=== PATIENT | male | born 1960 | race Caucasian/White ===

== ENCOUNTER 2021-04-26 23:44 | Inpatient (IN) ==
--- NOTE | 2021-04-26 23:51 | DR.SOBA ---
HPI Time Seen Time Seen by Provider: 04/26/21 23:50 HPI Comment HPI Comment: PATIENT COMPLAINS OF CHRONIC COUGH ASSOCIATED WITH DYSPNEA OVER PAST 10 DAYS. DENIES COUGH, FEVER, CHEST PAIN. CALLED EMS TODAY FOR DIFFICULTY BREATHING. Complaints Chief Complaint Doctors Comments: SHORTNESS OF BREATH COVID-19 Coronavirus symptoms experienced: Fever Reviewed Nurses Notes Reviewed: Yes Source History Provided: Patient and EMS Mode of Arrival Mode of Arrival: EMS Timing Onset of Chief Complaint: 04/27/21 Duration Duration: Weeks PMH PMH Past Surgical History: Yes ROS Review of Systems Constitutional: See HPI, Chills and Weakness Eyes: No Symptoms Reported ENTM: No Symptoms Reported Respiratoy: Dry Cough and Short of Breath Cardiovascular: No Symptoms Reported Gastrointestinal/Abdominal: No Symptoms Reported Genitourinary: No Symptoms Reported Neurological: No Symptoms Reported Musculoskeletal: No Symptoms Reported Integumentary: No Symptoms Reported Hematologic/Lymphatic: No Symptoms Reported Endocrine: No Symptoms Reported Psychiatric: No Symptoms Reported All Other Systems: Reviewed and Negative PE Vital Signs Vitals: Temperature 100.4 F Pulse Rate 96 Respiratory Rate 18 Blood Pressure 141/74 O2 Sat by Pulse Oximetry 93 General General Appearance: Alert and In Distress (MINIMAL TACHYPNEA) Head Head Exam: Normal Inspection Eyes Eye exam: Normal Appearance, PERRL and EOMI ENT ENT Exam: Normal Exam Neck Neck Exam: Normal Inspection and Full ROM Chest Chest Inspection: Normal Inspection and Symmetric Chest Wall Rise Respiratory Respiratory Exam: Bilateral: Decreased Breath Sounds, Left: Decreased Breath Sounds and Lower: Decreased Breath Sounds Cardiovascular Cardiovascular Exam: Regular Rate and Tachycardia Abdominal Exam Abdominal Exam: Normal Inspection, Normal Bowel Sounds and Soft Extremities Extremities Exam: Normal Inspection and Full ROM Back Back Exam: Normal Inspection and Full ROM Neurologic Neurological Exam: Alert and Oriented X3 Psychiatric Psychiatric Exam: Normal Affect and Normal Mood Skin Skin Exam: Warm and Dry MDM Differential Diagnosis Differential Diagnosis: CHF, COPD and Pneumonia Differential Diagnosis Comment:: COVID PNEUMONIA COURSE Treatment Treatment: PULSE OX 77% ON ROOM AIR, HIGH FLOW OXYGEN PULSE OXL 93%, IV NS 1 LITER BOLUS, LEVAQUIN 750MG IVPB, DECADRON 6MG IV, DUO NEB 12ML AEROSOL 30 MIN, LOVENOX 60MG SUBQ Reevaluation 1st: Improved Consultation Call Returned: 02:00 Consultation Comments: DISCUSSED WITH DR HAY FOR ADMIT INPATIENT ROR Labs Reviewed Laboratory Results Reviewed?: Yes Result Diagrams: 04/27/21 00:19 04/27/21 00:19 Laboratory: WBC 11.3 X10^3/uL (3.6-10.0) H 04/27/21 00:19 RBC 4.79 X10^6/uL (4.7-6.0) 04/27/21 00:19 Hgb 14.1 g/dL (13.5-18.0) 04/27/21 00:19 Hct 41.2 % (42.0-54.0) L 04/27/21 00:19 MCV 86.0 fL (80.0-100.0) 04/27/21 00:19 MCH 29.5 pg (27.0-34.0) 04/27/21 00:19 MCHC 34.3 g/dL (33.0-35.0) 04/27/21 00:19 RDW 14.0 % (11.6-16.5) 04/27/21 00:19 Plt Count 138 X10^3/uL (150.0-450.0) L 04/27/21 00:19 MPV 8.8 fL (7.4-11.0) 04/27/21 00:19 Neut % (Auto) 88.1 % (42.0-75.0) H 04/27/21 00:19 Lymph % (Auto) 7.0 % (21.0-51.0) L 04/27/21 00:19 [place] % (Auto) 3.2 % (0.0-13.0) 04/27/21 00:19 Eos % (Auto) 0.0 % (0.9-2.9) L 04/27/21 00:19 Baso % (Auto) 1.7 % (0.2-1.0) H 04/27/21 00:19 Neut # (Auto) 10.0 x10^3/uL (2.2-4.8) H 04/27/21 00:19 Lymph # (Auto) 0.8 X10^3/uL (1.3-2.9) L 04/27/21 00:19 [place] # (Auto) 0.4 x10^3/uL (0.3-0.8) 04/27/21 00:19 Eos # (Auto) 0.0 x10^3/uL (0.0-0.2) 04/27/21 00:19 Baso # (Auto) 0.2 X10^3/uL (0.0-0.1) H 04/27/21 00:19 Absolute Nucleated RBC 0.1 /100WBC 04/27/21 00:19 D-Dimer 1.05 ug/ml (0.0-0.57) H* 04/27/21 00:19 Sample Site Lr 04/27/21 00:00 ABG pH 7.500 (7.35-7.45) H 04/27/21 00:00 ABG pCO2 35.0 mmHg (35.0-45.0) 04/27/21 00:00 ABG pO2 48.0 mmHg (80.0-100.0) L* 04/27/21 00:00 ABG HCO3 27.3 mmol/L (22-26) H 04/27/21 00:00 ABG O2 Saturation 87.0 % (90-100) L 04/27/21 00:00 ABG Base Excess 4.2 mmol/L (-2.0-2.0) H 04/27/21 00:00 [place] Test Pos 04/27/21 00:00 A-a Gradient 193.0 mmHg 04/27/21 00:00 FiO2 40 04/27/21 00:00 Blood Gas Comments [facility] well 04/27/21 00:00 Sodium 137 mmol/L (136-145) 04/27/21 00:19 Corrected Sodium 139 mmol/L (136-145) 04/27/21 00:19 Potassium 3.0 mmol/L (3.5-5.1) L* 04/27/21 00:19 Chloride 99 mmol/L (98-107) 04/27/21 00:19 Carbon Dioxide 25.2 mmol/L (21-32) 04/27/21 00:19 BUN 16 mg/dL (7-18) 04/27/21 00:19 Creatinine 1.28 mg/dL (0.70-1.30) 04/27/21 00:19 Est GFR (MDRD) Af Amer > 60 (>60) 04/27/21 00:19 Est GFR (MDRD) Non-Af > 60 (>60) 04/27/21 00:19 Glucose 192 mg/dL (65-99) H 04/27/21 00:19 Lactic Acid 2.9 mmol/L (0.4-2.0) H 04/27/21 00:19 Calcium 8.5 mg/dL (8.5-10.1) 04/27/21 00:19 Ferritin 4163 ng/mL (26-388) H 04/27/21 00:19 Troponin I 0.11 ng/mL (0-1.5) 04/27/21 00:19 C-Reactive Protein 162.70 mg/L (0-3.0) H 04/27/21 00:19 B-Natriuretic Peptide 27.9 pg/mL (0-79) 04/27/21 00:19 SARS CoV-2 RNA Rapid HARVEY Positive (NEGATIVE) A 04/27/21 00:18 XRAY X-ray Results: PORTABLE CHEST XRAY - ,NO FOCAL CONSOLIDATION EKG Rate: 114 Rhythm: ST Block: RBBB Hypertrophy: LVH ST: Nonsp Opioid Opioid Risk Tool Total: 0 Total Score Risk Category: Low Risk Copyright: Pipe LIZAMA predicting aberrant behaviors Diagnosis Discharge Problem: Acute dyspnea, Acute bronchitis due to 2019 novel coronavirus
[2021-04-27] MEDS ORDERED: NS 1000 ML 1,000 ML IV STA (00:04)
[2021-04-27] MEDS ORDERED: LEVAQUIN PREMIX IV 750 MG 750 MG/150 ML BAG IV ONE (00:10)
[2021-04-27] MEDS ORDERED: NS 1000 ML 1,000 ML ONE ×2 (00:10→02:18)
[2021-04-27 00:13] LABS: ABG BASE EXCESS 4.2 mmol/L (-2.0-2.0); ABG HCO3 27.3 mmol/L (22-26)
[2021-04-27 00:14] LABS: ABG ALLEN TEST POS
[2021-04-27] MEDS ORDERED: DUONEB 0.5 MG/3 MG (3 mL) NEB ONE ×2 (00:17)
[2021-04-27 00:31] LABS: BASOPHILS # (AUTO) 0.2 X10^3/uL (0.0-0.1); BASOPHILS % (AUTO) 1.7 % (0.2-1.0); HEMATOCRIT 41.2 % (42.0-54.0); HEMOGLOBIN 14.1 g/dL (13.5-18.0); LYMPHOCYTES # (AUTO) 0.8 X10^3/uL (1.3-2.9); MEAN CORPUSCULAR HEMOGLOBIN 29.5 pg (27.0-34.0); MEAN CORPUSCULAR HGB CONC 34.3 g/dL (33.0-35.0); MEAN PLATELET VOLUME 8.8 fL (7.4-11.0); MONOCYTES # (AUTO) 0.4 x10^3/uL (0.3-0.8); MONOCYTES % (AUTO) 3.2 % (0.0-13.0); NEUTROPHILS % (AUTO) 88.1 % (42.0-75.0); PLATELET COUNT 138 X10^3/uL (150.0-450.0); RED BLOOD COUNT 4.79 X10^6/uL (4.7-6.0); WHITE BLOOD COUNT 11.3 X10^3/uL (3.6-10.0)
[2021-04-27 00:41] LABS: BLOOD UREA NITROGEN 16 mg/dL (7-18); CALCIUM 8.5 mg/dL (8.5-10.1); CARBON DIOXIDE 25.2 mmol/L (21-32); CHLORIDE 99 mmol/L (98-107); COR NA(FOR HYPERGLY) 139 mmol/L (136-145); CREATININE 1.28 mg/dL (0.70-1.30); SODIUM 137 mmol/L (136-145); eGFR NON BLACK RACES > 60 (>60)
[2021-04-27 00:49] LABS: LACTIC ACID 2.9 mmol/L (0.4-2.0)
[2021-04-27 01:02] LABS: TROPONIN I 0.11 ng/mL (0-1.5)
[2021-04-27] MEDS ORDERED: NS 1000 ML 1,000 ML IV ONE (01:19)
[2021-04-27] MEDS ORDERED: DECADRON INJ IVP STA (01:20)
[2021-04-27] MEDS ORDERED: DECADRON INJ ONE (01:25)
--- NOTE | 2021-04-27 01:25 | RAD ---
STUDY: FRONTAL VIEW CHESTCOMPARISON: NoneHISTORY: DYSPNEAFINDINGS:Subsegmental atelectasis is noted.No focal consolidation is seen.The heart size is within normal limits.The mediastinum is unremarkable.There is no evidence of pleural effusion or gross pneumothorax.The trachea is midline.IMPRESSION:1. No focal consolidation is seen.2. The heart size is normal.Electronically signed by: El Yuen (Apr 27, 2021 01:22:44)
[2021-04-27] MEDS ORDERED: LOVENOX INJ 60 MG SYR SC ONE ×2 (01:57→02:18)
[2021-04-27] MEDS ORDERED: K-DUR TAB 20 MEQ PO ONE ×2 (02:18→21:59)
[2021-04-27] MEDS: K-DUR TAB 20 MEQ PO STA ×2 (02:29→02:30)
[2021-04-27] MEDS ORDERED: PERIACTIN TAB 4 MG PO PRN (02:33)
[2021-04-27] MEDS ORDERED: REMDESIVIR 200 MG in NS 250 ML IV 250 ML IV ONE (02:33)
[2021-04-27] MEDS ORDERED: NS 250 ML IV 250 ML IV ONE (02:47)
[2021-04-27] MEDS ORDERED: REMDESIVIR IV ONE (02:47)
[2021-04-27] MEDS ORDERED: NS 1000 ML 1,000 ML IV SCH (03:00)
[2021-04-27] MEDS ORDERED: PHARMACY CONSULT - IVERMECTIN XX SCH ×2 (03:00)
[2021-04-27] MEDS ORDERED: PHARMACY CONSULT - LOVENOX XX SCH (03:00)
[2021-04-27] MEDS ORDERED: ASCORBIC ACID INJ MULTI-DOSE VIAL 1,500 MG in NS 100 ML IV 100 ML IV SCH (03:00)
[2021-04-27] MEDS: NS 1000 ML 1,000 ML IV SCH ×2 (03:23→09:56)
[2021-04-27] MEDS: ASCORBIC ACID INJ MULTI-DOSE VIAL 1,500 MG in NS 100 ML IV 100 ML IV SCH ×4 (04:11→21:00)
[2021-04-27 05:27] LABS: BASOPHILS % (AUTO) 0.1 % (0.2-1.0); BLOOD UREA NITROGEN 14 mg/dL (7-18); CALCIUM 7.8 mg/dL (8.5-10.1); CARBON DIOXIDE 26.7 mmol/L (21-32); CHLORIDE 101 mmol/L (98-107); COR NA(FOR HYPERGLY) 140 mmol/L (136-145); CREATININE 1.07 mg/dL (0.70-1.30); HEMATOCRIT 37.7 % (42.0-54.0); HEMOGLOBIN 12.8 g/dL (13.5-18.0); LYMPHOCYTES # (AUTO) 0.9 X10^3/uL (1.3-2.9); LYMPHOCYTES % (AUTO) 7.8 % (21.0-51.0); MEAN CORPUSCULAR HEMOGLOBIN 29.2 pg (27.0-34.0); MEAN CORPUSCULAR HGB CONC 33.9 g/dL (33.0-35.0); MEAN CORPUSCULAR VOLUME 86.1 fL (80.0-100.0); MEAN PLATELET VOLUME 9.4 fL (7.4-11.0); MONOCYTES # (AUTO) 0.5 x10^3/uL (0.3-0.8); MONOCYTES % (AUTO) 4.1 % (0.0-13.0); NEUTROPHILS # (AUTO) 9.9 x10^3/uL (2.2-4.8); PLATELET COUNT 129 X10^3/uL (150.0-450.0); RED BLOOD COUNT 4.37 X10^6/uL (4.7-6.0); RED CELL DISTRIBUTION WIDTH 13.9 % (11.6-16.5); SODIUM 138 mmol/L (136-145); WHITE BLOOD COUNT 11.3 X10^3/uL (3.6-10.0); eGFR NON BLACK RACES > 60 (>60)
[2021-04-27] MEDS ORDERED: CYTOTEC ONE (05:46)
[2021-04-27] MEDS: CYTOTEC PO SCH ×3 (06:07→21:00)
[2021-04-27 06:14] LABS: TROPONIN I 0.13 ng/mL (0-1.5)
[2021-04-27] MEDS ORDERED: VITAMIN D (1.25MG) PO SCH ×2 (09:00)
[2021-04-27] MEDS ORDERED: LOVENOX INJ 30 MG SYR SC SCH (09:00)
[2021-04-27] MEDS ORDERED: VITAMIN A PO SCH ×2 (09:00)
[2021-04-27] MEDS ORDERED: ZINC SULFATE PO SCH (09:00)
[2021-04-27] MEDS ORDERED: LEVAQUIN PREMIX IV 750 MG 750 MG/150 ML BAG IV SCH ×2 (09:00)
[2021-04-27] MEDS ORDERED: PULMICORT NEB TX 0.5 MG NEB SCH (09:00)
[2021-04-27] MEDS ORDERED: DECADRON TAB PO SCH (09:00)
[2021-04-27] MEDS ORDERED: VIBRAMYCIN PO SCH (09:00)
[2021-04-27] MEDS ORDERED: BROVANA IN SCH (09:00)
[2021-04-27] MEDS ORDERED: PEPCID TAB 40 MG PO SCH (09:00)
[2021-04-27] MEDS: PULMICORT NEB TX 0.5 MG NEB SCH ×2 (09:45→20:50)
[2021-04-27] MEDS: BROVANA IN SCH ×2 (09:45→20:50)
[2021-04-27] MEDS: SOLU-Medrol 40 MG VIAL IVP SCH ×2 (10:00→17:22)
[2021-04-27] MEDS: LOVENOX INJ 120 MG SYR SC SCH ×2 (10:56→21:00)
[2021-04-27] MEDS: IVERMECTIN PO SCH (10:56)
[2021-04-27] MEDS: PROTONIX INJ 40 MG VIAL IVP SCH ×2 (10:57→21:00)
[2021-04-27] MEDS: PEPCID TAB 40 MG PO SCH ×2 (10:57→21:00)
[2021-04-27] MEDS: LIPITOR TAB 80 MG PO SCH (10:57)
[2021-04-27] MEDS: THIAMINE HCL INJ IVP SCH ×2 (10:58→21:00)
[2021-04-27] MEDS: VIBRAMYCIN PO SCH ×2 (10:58→21:00)
[2021-04-27] MEDS: TRICOR TAB 160 MG PO SCH (11:00)
[2021-04-27] MEDS: ZINC SULFATE PO SCH ×2 (11:01→21:00)
[2021-04-27] MEDS: MELATONIN PO SCH (21:00)
[2021-04-27] MEDS: ROBITUSSIN DM PO PRN (21:00)
[2021-04-27] MEDS: K-DUR TAB 20 MEQ PO SCH (21:00)
[2021-04-28] MEDS: SOLU-Medrol 40 MG VIAL IVP SCH (01:24)
[2021-04-28] MEDS: REMDESIVIR 100 MG in NS 250 ML IV 250 ML IV SCH (03:04)
[2021-04-28] MEDS: NS 1000 ML 1,000 ML IV SCH (03:04)
[2021-04-28] MEDS: ASCORBIC ACID INJ MULTI-DOSE VIAL 1,500 MG in NS 100 ML IV 100 ML IV SCH ×4 (04:30→20:12)
[2021-04-28 05:02] LABS: BASOPHILS % (AUTO) 0.1 % (0.2-1.0); HEMATOCRIT 38.5 % (42.0-54.0); LYMPHOCYTES # (AUTO) 1.3 X10^3/uL (1.3-2.9); LYMPHOCYTES % (AUTO) 9.7 % (21.0-51.0); MEAN CORPUSCULAR HEMOGLOBIN 29.3 pg (27.0-34.0); MEAN CORPUSCULAR HGB CONC 33.9 g/dL (33.0-35.0); MEAN CORPUSCULAR VOLUME 86.4 fL (80.0-100.0); MEAN PLATELET VOLUME 9.5 fL (7.4-11.0); MONOCYTES # (AUTO) 0.5 x10^3/uL (0.3-0.8); MONOCYTES % (AUTO) 3.6 % (0.0-13.0); NEUTROPHILS # (AUTO) 11.4 x10^3/uL (2.2-4.8); NEUTROPHILS % (AUTO) 86.6 % (42.0-75.0); PLATELET COUNT 156 X10^3/uL (150.0-450.0); RED BLOOD COUNT 4.46 X10^6/uL (4.7-6.0); RED CELL DISTRIBUTION WIDTH 14.2 % (11.6-16.5); WHITE BLOOD COUNT 13.1 X10^3/uL (3.6-10.0)
[2021-04-28 05:06] LABS: BLOOD UREA NITROGEN 19 mg/dL (7-18); CALCIUM 8.1 mg/dL (8.5-10.1); CARBON DIOXIDE 25.7 mmol/L (21-32); CHLORIDE 104 mmol/L (98-107); COR NA(FOR HYPERGLY) 143 mmol/L (136-145); CREATININE 0.98 mg/dL (0.70-1.30); SODIUM 140 mmol/L (136-145); eGFR NON BLACK RACES > 60 (>60)
[2021-04-28] MEDS: CYTOTEC PO SCH ×3 (06:00→21:20)
[2021-04-28] MEDS: BROVANA IN SCH ×2 (08:24→20:53)
[2021-04-28] MEDS: PULMICORT NEB TX 0.5 MG NEB SCH ×2 (08:24→20:53)
[2021-04-28 08:55] VITALS: BMI 41.2
[2021-04-28] MEDS: LOVENOX INJ 120 MG SYR SC SCH ×2 (09:53→21:17)
[2021-04-28] MEDS: THIAMINE HCL INJ IVP SCH ×2 (09:54→20:13)
[2021-04-28] MEDS: SOLU-Medrol 125 MG VIAL IVP SCH ×2 (09:54→16:28)
[2021-04-28] MEDS: PROTONIX INJ 40 MG VIAL IVP SCH ×2 (09:57→20:13)
[2021-04-28] MEDS: K-DUR TAB 20 MEQ PO SCH ×2 (11:49→21:16)
[2021-04-28] MEDS: TRICOR TAB 160 MG PO SCH (11:50)
[2021-04-28] MEDS: ZINC SULFATE PO SCH ×2 (11:50→21:20)
[2021-04-28] MEDS: VIBRAMYCIN PO SCH ×2 (11:50→21:20)
[2021-04-28] MEDS: LIPITOR TAB 80 MG PO SCH (11:50)
[2021-04-28] MEDS: PEPCID TAB 40 MG PO SCH ×2 (11:51→21:20)
[2021-04-28] MEDS: IVERMECTIN PO SCH (14:10)
[2021-04-28] MEDS: MELATONIN PO SCH (21:20)
[2021-04-28 22:34] LABS: ALANINE AMINOTRANSFERASE 43 Units/L (12-78); ALBUMIN 2.6 g/dL (3.4-5.0); ALKALINE PHOSPHATASE 77 Units/L (46-116); ASPARTATE AMINO TRANSFERASE 89 Units/L (15-37); COR CA(FOR HYPOALB) 8.9 mg/dL (8.5-10.1); TOTAL PROTEIN 6.8 g/dL (6.4-8.2)
[2021-04-28 22:37] LABS: ALANINE AMINOTRANSFERASE 43 Units/L (12-78); ALBUMIN 2.5 g/dL (3.4-5.0); ALKALINE PHOSPHATASE 74 Units/L (46-116); ASPARTATE AMINO TRANSFERASE 78 Units/L (15-37); COR CA(FOR HYPOALB) 9.3 mg/dL (8.5-10.1); TOTAL PROTEIN 6.9 g/dL (6.4-8.2)
[2021-04-29] MEDS: SOLU-Medrol 125 MG VIAL IVP SCH ×4 (01:22→21:00)
[2021-04-29] MEDS: REMDESIVIR 100 MG in NS 250 ML IV 250 ML IV SCH (02:40)
[2021-04-29] MEDS: ASCORBIC ACID INJ MULTI-DOSE VIAL 1,500 MG in NS 100 ML IV 100 ML IV SCH ×4 (04:00→20:57)
[2021-04-29] MEDS: NS 1000 ML 1,000 ML IV SCH ×2 (04:28→09:33)
[2021-04-29] MEDS: CYTOTEC PO SCH ×3 (05:34→21:00)
[2021-04-29 06:14] LABS: BASOPHILS % (AUTO) 0.1 % (0.2-1.0); HEMATOCRIT 38.9 % (42.0-54.0); HEMOGLOBIN 13.1 g/dL (13.5-18.0); LYMPHOCYTES # (AUTO) 1.5 X10^3/uL (1.3-2.9); LYMPHOCYTES % (AUTO) 9.2 % (21.0-51.0); MEAN CORPUSCULAR HEMOGLOBIN 29.5 pg (27.0-34.0); MEAN CORPUSCULAR HGB CONC 33.6 g/dL (33.0-35.0); MEAN CORPUSCULAR VOLUME 87.9 fL (80.0-100.0); MEAN PLATELET VOLUME 9.8 fL (7.4-11.0); MONOCYTES # (AUTO) 0.8 x10^3/uL (0.3-0.8); NEUTROPHILS # (AUTO) 14.2 x10^3/uL (2.2-4.8); NEUTROPHILS % (AUTO) 85.7 % (42.0-75.0); PLATELET COUNT 185 X10^3/uL (150.0-450.0); RED BLOOD COUNT 4.42 X10^6/uL (4.7-6.0); RED CELL DISTRIBUTION WIDTH 14.4 % (11.6-16.5); WHITE BLOOD COUNT 16.6 X10^3/uL (3.6-10.0)
[2021-04-29 06:19] LABS: ALANINE AMINOTRANSFERASE 40 Units/L (12-78); ALBUMIN 2.1 g/dL (3.4-5.0); ALKALINE PHOSPHATASE 72 Units/L (46-116); ASPARTATE AMINO TRANSFERASE 70 Units/L (15-37); BLOOD UREA NITROGEN 28 mg/dL (7-18); CALCIUM 8.3 mg/dL (8.5-10.1); CARBON DIOXIDE 26.5 mmol/L (21-32); CHLORIDE 107 mmol/L (98-107); COR CA(FOR HYPOALB) 9.8 mg/dL (8.5-10.1); COR NA(FOR HYPERGLY) 146 mmol/L (136-145); CREATININE 1.02 mg/dL (0.70-1.30); SODIUM 142 mmol/L (136-145); TOTAL PROTEIN 6.7 g/dL (6.4-8.2); eGFR NON BLACK RACES > 60 (>60)
[2021-04-29] MEDS: BROVANA IN SCH ×2 (08:58→20:18)
[2021-04-29] MEDS: PULMICORT NEB TX 0.5 MG NEB SCH ×2 (08:58→20:18)
[2021-04-29] MEDS ORDERED: VITAMIN A PO SCH (09:00)
[2021-04-29] MEDS ORDERED: VITAMIN D3 125 mcg (5,000 UNITS) PO SCH (09:00)
[2021-04-29] MEDS: THIAMINE HCL INJ IVP SCH ×2 (09:21→20:57)
[2021-04-29] MEDS: PROTONIX INJ 40 MG VIAL IVP SCH ×2 (09:21→20:57)
[2021-04-29] MEDS: LOVENOX INJ 120 MG SYR SC SCH ×2 (09:23→21:00)
[2021-04-29] MEDS: VIBRAMYCIN PO SCH ×2 (09:36→21:00)
[2021-04-29] MEDS: TRICOR TAB 160 MG PO SCH (09:37)
[2021-04-29] MEDS: PEPCID TAB 40 MG PO SCH ×2 (09:37→21:00)
[2021-04-29] MEDS: K-DUR TAB 20 MEQ PO SCH ×2 (09:37→21:00)
[2021-04-29] MEDS: VITAMIN D3 125 mcg (5,000 UNITS) PO SCH (09:37)
[2021-04-29] MEDS: VITAMIN A PO SCH (09:37)
[2021-04-29] MEDS: IVERMECTIN PO SCH (09:38)
[2021-04-29] MEDS: LIPITOR TAB 80 MG PO SCH (09:38)
[2021-04-29] MEDS: ZINC SULFATE PO SCH ×2 (09:38→21:00)
[2021-04-29] MEDS: ROBITUSSIN DM PO PRN (14:06)
[2021-04-29] MEDS: MELATONIN PO SCH (21:00)
[2021-04-30] MEDS: REMDESIVIR 100 MG in NS 250 ML IV 250 ML IV SCH (02:27)
[2021-04-30] MEDS: ASCORBIC ACID INJ MULTI-DOSE VIAL 1,500 MG in NS 100 ML IV 100 ML IV SCH ×4 (04:15→21:16)
[2021-04-30] MEDS: NS 1000 ML 1,000 ML IV SCH (04:15)
[2021-04-30] MEDS: SOLU-Medrol 125 MG VIAL IVP SCH ×3 (05:43→21:21)
[2021-04-30] MEDS: CYTOTEC PO SCH ×3 (05:45→21:21)
[2021-04-30 06:41] LABS: ALANINE AMINOTRANSFERASE 43 Units/L (12-78); ALBUMIN 2.3 g/dL (3.4-5.0); ALKALINE PHOSPHATASE 89 Units/L (46-116); ASPARTATE AMINO TRANSFERASE 83 Units/L (15-37); BLOOD UREA NITROGEN 37 mg/dL (7-18); CALCIUM 8.4 mg/dL (8.5-10.1); CARBON DIOXIDE 23.1 mmol/L (21-32); CHLORIDE 110 mmol/L (98-107); COR CA(FOR HYPOALB) 9.8 mg/dL (8.5-10.1); COR NA(FOR HYPERGLY) 151 mmol/L (136-145); CREATININE 1.41 mg/dL (0.70-1.30); SODIUM 146 mmol/L (136-145); TOTAL PROTEIN 7.1 g/dL (6.4-8.2); eGFR NON BLACK RACES 54 (>60)
[2021-04-30 06:43] LABS: BASOPHILS % (AUTO) 0.1 % (0.2-1.0); LYMPHOCYTES # (AUTO) 1.1 X10^3/uL (1.3-2.9); LYMPHOCYTES % (AUTO) 7.1 % (21.0-51.0); MEAN CORPUSCULAR HEMOGLOBIN 29.4 pg (27.0-34.0); MEAN CORPUSCULAR HGB CONC 33.2 g/dL (33.0-35.0); MEAN CORPUSCULAR VOLUME 88.5 fL (80.0-100.0); MEAN PLATELET VOLUME 9.3 fL (7.4-11.0); MONOCYTES # (AUTO) 1.2 x10^3/uL (0.3-0.8); MONOCYTES % (AUTO) 7.4 % (0.0-13.0); NEUTROPHILS # (AUTO) 13.7 x10^3/uL (2.2-4.8); NEUTROPHILS % (AUTO) 85.4 % (42.0-75.0); PLATELET COUNT 201 X10^3/uL (150.0-450.0); RED BLOOD COUNT 4.75 X10^6/uL (4.7-6.0); RED CELL DISTRIBUTION WIDTH 14.4 % (11.6-16.5)
[2021-04-30] MEDS ORDERED: LR 1000 ML IV 1,000 ML IV ONE (08:35)
[2021-04-30] MEDS: PULMICORT NEB TX 0.5 MG NEB SCH ×2 (09:00→20:30)
[2021-04-30] MEDS: BROVANA IN SCH ×2 (09:00→20:30)
[2021-04-30] MEDS: ZINC SULFATE PO SCH ×2 (09:32→21:21)
[2021-04-30] MEDS: VITAMIN D3 125 mcg (5,000 UNITS) PO SCH (09:32)
[2021-04-30] MEDS: VITAMIN A PO SCH (09:32)
[2021-04-30] MEDS: PROTONIX INJ 40 MG VIAL IVP SCH ×2 (09:33→21:22)
[2021-04-30] MEDS: VIBRAMYCIN PO SCH ×2 (09:33→21:21)
[2021-04-30] MEDS: LIPITOR TAB 80 MG PO SCH (09:33)
[2021-04-30] MEDS: THIAMINE HCL INJ IVP SCH ×2 (09:33→21:22)
[2021-04-30] MEDS: TRICOR TAB 160 MG PO SCH (09:33)
[2021-04-30] MEDS: PEPCID TAB 40 MG PO SCH ×2 (09:33→21:20)
[2021-04-30] MEDS: K-DUR TAB 20 MEQ PO SCH ×2 (09:34→21:19)
[2021-04-30] MEDS: LOVENOX INJ 120 MG SYR SC SCH ×2 (09:34→21:19)
[2021-04-30] MEDS: IVERMECTIN PO SCH (09:34)
[2021-04-30] MEDS: MELATONIN PO SCH (21:20)
[2021-05-01] MEDS: REMDESIVIR 100 MG in NS 250 ML IV 250 ML IV SCH (04:10)
[2021-05-01] MEDS: ASCORBIC ACID INJ MULTI-DOSE VIAL 1,500 MG in NS 100 ML IV 100 ML IV SCH ×4 (04:10→21:36)
[2021-05-01] MEDS: NS 1000 ML 1,000 ML IV SCH (04:10)
[2021-05-01] MEDS: CYTOTEC PO SCH ×3 (05:37→23:00)
[2021-05-01] MEDS: SOLU-Medrol 125 MG VIAL IVP SCH ×3 (06:28→21:37)
[2021-05-01 06:42] LABS: BASOPHILS % (AUTO) 0.1 % (0.2-1.0); HEMATOCRIT 39.6 % (42.0-54.0); HEMOGLOBIN 13.2 g/dL (13.5-18.0); LYMPHOCYTES # (AUTO) 1.1 X10^3/uL (1.3-2.9); LYMPHOCYTES % (AUTO) 6.4 % (21.0-51.0); MEAN CORPUSCULAR HEMOGLOBIN 29.5 pg (27.0-34.0); MEAN CORPUSCULAR HGB CONC 33.4 g/dL (33.0-35.0); MEAN CORPUSCULAR VOLUME 88.4 fL (80.0-100.0); MEAN PLATELET VOLUME 9.1 fL (7.4-11.0); MONOCYTES # (AUTO) 1.2 x10^3/uL (0.3-0.8); MONOCYTES % (AUTO) 7.1 % (0.0-13.0); NEUTROPHILS # (AUTO) 14.5 x10^3/uL (2.2-4.8); NEUTROPHILS % (AUTO) 86.4 % (42.0-75.0); PLATELET COUNT 221 X10^3/uL (150.0-450.0); RED BLOOD COUNT 4.47 X10^6/uL (4.7-6.0); RED CELL DISTRIBUTION WIDTH 14.5 % (11.6-16.5); WHITE BLOOD COUNT 16.8 X10^3/uL (3.6-10.0)
[2021-05-01 07:00] LABS: ALANINE AMINOTRANSFERASE 47 Units/L (12-78); ALBUMIN 2.3 g/dL (3.4-5.0); ALKALINE PHOSPHATASE 106 Units/L (46-116); ASPARTATE AMINO TRANSFERASE 99 Units/L (15-37); BLOOD UREA NITROGEN 37 mg/dL (7-18); CALCIUM 8.2 mg/dL (8.5-10.1); CARBON DIOXIDE 25.3 mmol/L (21-32); CHLORIDE 112 mmol/L (98-107); COR CA(FOR HYPOALB) 9.6 mg/dL (8.5-10.1); COR NA(FOR HYPERGLY) 153 mmol/L (136-145); CREATININE 1.27 mg/dL (0.70-1.30); SODIUM 148 mmol/L (136-145); TOTAL PROTEIN 6.8 g/dL (6.4-8.2); eGFR NON BLACK RACES > 60 (>60)
[2021-05-01] MEDS: PROTONIX INJ 40 MG VIAL IVP SCH ×2 (09:00→21:37)
[2021-05-01] MEDS: K-DUR TAB 20 MEQ PO SCH ×2 (09:00→22:59)
[2021-05-01] MEDS: LOVENOX INJ 120 MG SYR SC SCH ×2 (09:00→22:37)
[2021-05-01] MEDS: IVERMECTIN PO SCH (09:00)
[2021-05-01] MEDS: PEPCID TAB 40 MG PO SCH ×2 (09:00→22:59)
[2021-05-01] MEDS: LIPITOR TAB 80 MG PO SCH (09:00)
[2021-05-01] MEDS: THIAMINE HCL INJ IVP SCH ×2 (09:00→21:37)
[2021-05-01] MEDS: VITAMIN D3 125 mcg (5,000 UNITS) PO SCH (09:00)
[2021-05-01] MEDS: VITAMIN A PO SCH (09:00)
[2021-05-01] MEDS: ZINC SULFATE PO SCH ×2 (09:00→23:00)
[2021-05-01] MEDS: TRICOR TAB 160 MG PO SCH (09:00)
[2021-05-01] MEDS: VIBRAMYCIN PO SCH ×2 (09:00→23:00)
[2021-05-01] MEDS: PULMICORT NEB TX 0.5 MG NEB SCH ×2 (09:16→21:00)
[2021-05-01] MEDS: BROVANA IN SCH ×2 (09:16→21:00)
[2021-05-01] MEDS ORDERED: LR 1000 ML IV 1,000 ML IV ONE (09:48)
[2021-05-01] MEDS ORDERED: LR 1000 ML IV 2,000 ML IV ONE (11:29)
[2021-05-01] MEDS: AVELOX IV 400 MG/250 ML BAG 400 MG/250 ML PIGGYBACK IV SCH (11:48)
[2021-05-01] MEDS: LR 1000 ML IV 1,000 ML IV SCH ×3 (11:51→21:37)
[2021-05-01] MEDS: DIFLUCAN 200 MG IV PREMIX* 200 MG/100 ML BAG IV SCH (15:31)
[2021-05-01] MEDS ORDERED: ATIVAN INJ 2 MG VIAL ONE (21:51)
[2021-05-01] MEDS ORDERED: ATIVAN INJ 2 MG VIAL IVP ONE ×2 (21:51→22:58)
[2021-05-01] MEDS: MELATONIN PO SCH (22:59)
[2021-05-01] MEDS ORDERED: DIPRIVAN VIAL 20 ML ONE (23:52)
[2021-05-01] MEDS ORDERED: QUELICIN (OR ANECTINE) ONE (23:52)
[2021-05-02] MEDS ORDERED: QUELICIN (OR ANECTINE) ONE (00:25)
[2021-05-02] MEDS ORDERED: ZEMURON 100 MG VIAL 500 MG in NS 500 ML IV 450 ML IV SCH (00:45)
[2021-05-02] MEDS: ZEMURON 100 MG VIAL 500 MG in NS 500 ML IV 450 ML IV SCH (01:00)
[2021-05-02 01:11] LABS: ABG ALLEN TEST POS; ABG BASE EXCESS 1.3 mmol/L (-2.0-2.0); ABG HCO3 27.6 mmol/L (22-26)
--- NOTE | 2021-05-02 01:14 | RAD ---
STUDY: CHEST, 1 VIEWCOMPARISON: 04/27/2021HISTORY: ET TUBE PLACEMENTFINDINGS:Tip of endotracheal tube is 2.6 cm above the alaina. Enteric tube is seen with tip below the diaphragm most likely in the stomach.Progressively worsening alveolar airspace disease is noted throughout the right lung and left lung. No pleural effusion or gross pneumothorax is seen.Heart size is magnified on this portable technique but grossly stable from prior exam.IMPRESSION:Tip of endotracheal tube is located 2.6 cm above the alaina with imaging features that are highly worrisome for progression of pulmonary pathology an possible ARDSElectronically signed by: El Yuen (May 02, 2021 01:11:44)
[2021-05-02 01:19] LABS: BILIRUBIN,URINE NEGATIVE (NEGATIVE); BLOOD/HEMOGLOBIN,URINE NEGATIVE (NEGATIVE); GLUCOSE, URINE 3+ (NEGATIVE); KETONES,URINE 3+ (NEGATIVE); LEUKOCYTE ESTERASE ,URINE NEGATIVE (NEGATIVE); NITRITES,URINE NEGATIVE (NEGATIVE); PROTEIN,URINE 2+ (NEGATIVE); UROBILINOGEN,URINE NORMAL (NORMAL)
[2021-05-02] MEDS: DIPRIVAN PREMIX 1 GRAM IV 1,000 MG/100 ML VIAL IV PRN ×7 (01:21→22:05)
[2021-05-02] MEDS: LR 1000 ML IV 1,000 ML IV SCH ×3 (01:21→22:03)
[2021-05-02 01:27] LABS: APPEARANCE,URINE CLEAR (CLEAR); COLOR,URINE YELLOW (YELLOW)
[2021-05-02 01:43] LABS: BACTERIA,URINE TRACE /HPF (NEGATIVE); RBC,URINE NONE SEEN /HPF (0-3); SQUAMOUS EPITHELIAL CELL,UR MODERATE /HPF (NEGATIVE)
[2021-05-02] MEDS: ASCORBIC ACID INJ MULTI-DOSE VIAL 1,500 MG in NS 100 ML IV 100 ML IV SCH ×4 (02:51→22:01)
[2021-05-02] MEDS: REMDESIVIR 100 MG in NS 250 ML IV 250 ML IV SCH (03:43)
[2021-05-02] MEDS: CYTOTEC PO SCH (05:03)
[2021-05-02] MEDS: SOLU-Medrol 125 MG VIAL IVP SCH ×3 (05:03→22:02)
[2021-05-02 05:35] LABS: BASOPHILS % (AUTO) 0.1 % (0.2-1.0); HEMATOCRIT 37.7 % (42.0-54.0); HEMOGLOBIN 12.5 g/dL (13.5-18.0); MEAN CORPUSCULAR HEMOGLOBIN 29.5 pg (27.0-34.0); MEAN CORPUSCULAR HGB CONC 33.1 g/dL (33.0-35.0); MEAN CORPUSCULAR VOLUME 88.9 fL (80.0-100.0); MEAN PLATELET VOLUME 9.7 fL (7.4-11.0); MONOCYTES # (AUTO) 0.9 x10^3/uL (0.3-0.8); NEUTROPHILS # (AUTO) 13.9 x10^3/uL (2.2-4.8); NEUTROPHILS % (AUTO) 87.9 % (42.0-75.0); PLATELET COUNT 220 X10^3/uL (150.0-450.0); RED BLOOD COUNT 4.24 X10^6/uL (4.7-6.0); RED CELL DISTRIBUTION WIDTH 14.6 % (11.6-16.5); WHITE BLOOD COUNT 15.8 X10^3/uL (3.6-10.0)
[2021-05-02 05:45] LABS: ABG BASE EXCESS 1.8 mmol/L (-2.0-2.0); ABG HCO3 29.8 mmol/L (22-26)
[2021-05-02 05:46] LABS: ABG ALLEN TEST POS
[2021-05-02] MEDS ORDERED: DIPRIVAN VIAL 0 ML ONE (05:51)
[2021-05-02] MEDS ORDERED: DIPRIVAN PREMIX 1 GRAM IV 1,000 MG/100 ML VIAL ONE (06:00)
[2021-05-02 06:56] LABS: ALANINE AMINOTRANSFERASE 49 Units/L (12-78); ALBUMIN 2.1 g/dL (3.4-5.0); ALKALINE PHOSPHATASE 112 Units/L (46-116); ASPARTATE AMINO TRANSFERASE 86 Units/L (15-37); BLOOD UREA NITROGEN 30 mg/dL (7-18); CALCIUM 7.8 mg/dL (8.5-10.1); CARBON DIOXIDE 30.4 mmol/L (21-32); COR CA(FOR HYPOALB) 9.3 mg/dL (8.5-10.1); COR NA(FOR HYPERGLY) 155 mmol/L (136-145); CREATININE 1.01 mg/dL (0.70-1.30); TOTAL PROTEIN 6.3 g/dL (6.4-8.2); eGFR NON BLACK RACES > 60 (>60)
[2021-05-02 07:01] LABS: CHLORIDE 115 mmol/L (98-107); SODIUM 150 mmol/L (136-145)
[2021-05-02] MEDS: DIFLUCAN 200 MG IV PREMIX* 200 MG/100 ML BAG IV SCH (08:34)
[2021-05-02] MEDS: LIPITOR TAB 80 MG PO SCH (08:35)
[2021-05-02] MEDS: LOVENOX INJ 120 MG SYR SC SCH ×2 (08:35→22:01)
[2021-05-02] MEDS: VITAMIN D3 125 mcg (5,000 UNITS) PO SCH (08:36)
[2021-05-02] MEDS: PEPCID TAB 40 MG PO SCH (08:36)
[2021-05-02] MEDS: VITAMIN A PO SCH (08:36)
[2021-05-02] MEDS: ZINC SULFATE PO SCH (08:36)
[2021-05-02] MEDS: PROTONIX INJ 40 MG VIAL IVP SCH ×2 (08:37→22:02)
[2021-05-02] MEDS: THIAMINE HCL INJ IVP SCH ×2 (08:37→22:02)
[2021-05-02] MEDS: VIBRAMYCIN PO SCH (08:37)
[2021-05-02] MEDS: TRICOR TAB 160 MG PO SCH (08:37)
[2021-05-02] MEDS: PULMICORT NEB TX 0.5 MG NEB SCH ×2 (09:35→20:40)
[2021-05-02] MEDS: BROVANA IN SCH ×2 (09:40→20:40)
[2021-05-02] MEDS ORDERED: LR 1000 ML IV 1,000 ML IV ONE (09:46)
[2021-05-02] MEDS: AVELOX IV 400 MG/250 ML BAG 400 MG/250 ML PIGGYBACK IV SCH (11:30)
[2021-05-02] MEDS ORDERED: NS 500 ML IV 0 ML IV ONE (15:13)
[2021-05-02] MEDS: LACRI-LUBE S.O.P. AFFEYE SCH (22:02)
[2021-05-03] MEDS: DIPRIVAN PREMIX 1 GRAM IV 1,000 MG/100 ML VIAL IV PRN ×6 (01:40→23:09)
[2021-05-03] MEDS: ASCORBIC ACID INJ MULTI-DOSE VIAL 1,500 MG in NS 100 ML IV 100 ML IV SCH ×4 (02:55→21:10)
[2021-05-03] MEDS: REMDESIVIR 100 MG in NS 250 ML IV 250 ML IV SCH (03:30)
[2021-05-03 04:20] LABS: ABG ALLEN TEST POS; ABG BASE EXCESS 5.9 mmol/L (-2.0-2.0); ABG HCO3 32.5 mmol/L (22-26)
[2021-05-03 06:05] LABS: BASOPHILS % (AUTO) 0.2 % (0.2-1.0); EOSINOPHILS % (AUTO) 0.1 % (0.9-2.9); HEMATOCRIT 40.5 % (42.0-54.0); HEMOGLOBIN 13.3 g/dL (13.5-18.0); LYMPHOCYTES # (AUTO) 0.7 X10^3/uL (1.3-2.9); LYMPHOCYTES % (AUTO) 4.3 % (21.0-51.0); MEAN CORPUSCULAR HEMOGLOBIN 29.1 pg (27.0-34.0); MEAN CORPUSCULAR HGB CONC 32.8 g/dL (33.0-35.0); MEAN CORPUSCULAR VOLUME 88.8 fL (80.0-100.0); MEAN PLATELET VOLUME 9.4 fL (7.4-11.0); MONOCYTES # (AUTO) 0.8 x10^3/uL (0.3-0.8); MONOCYTES % (AUTO) 4.5 % (0.0-13.0); NEUTROPHILS # (AUTO) 15.8 x10^3/uL (2.2-4.8); NEUTROPHILS % (AUTO) 90.9 % (42.0-75.0); PLATELET COUNT 232 X10^3/uL (150.0-450.0); RED BLOOD COUNT 4.56 X10^6/uL (4.7-6.0); RED CELL DISTRIBUTION WIDTH 14.6 % (11.6-16.5); WHITE BLOOD COUNT 17.4 X10^3/uL (3.6-10.0)
[2021-05-03 06:20] LABS: ALANINE AMINOTRANSFERASE 50 Units/L (12-78); ALKALINE PHOSPHATASE 116 Units/L (46-116); ASPARTATE AMINO TRANSFERASE 62 Units/L (15-37); BLOOD UREA NITROGEN 24 mg/dL (7-18); CALCIUM 7.8 mg/dL (8.5-10.1); CARBON DIOXIDE 31.3 mmol/L (21-32); CHLORIDE 110 mmol/L (98-107); COR CA(FOR HYPOALB) 9.4 mg/dL (8.5-10.1); COR NA(FOR HYPERGLY) 154 mmol/L (136-145); CREATININE 0.91 mg/dL (0.70-1.30); SODIUM 149 mmol/L (136-145); TOTAL PROTEIN 6.3 g/dL (6.4-8.2); eGFR NON BLACK RACES > 60 (>60)
[2021-05-03 08:08] LABS: BAND NEUTROPHILS % 6 % (0-10); MYELOCYTES % 2
[2021-05-03 08:09] LABS: ANISOCYTOSIS SLIGHT; PLATELET MORPHOLOGY COMMENT NORMAL (NORMAL)
[2021-05-03] MEDS: DIFLUCAN 200 MG IV PREMIX* 200 MG/100 ML BAG IV SCH (08:29)
[2021-05-03] MEDS: LR 1000 ML IV 1,000 ML IV SCH ×4 (08:30→23:13)
[2021-05-03] MEDS: PULMICORT NEB TX 0.5 MG NEB SCH ×2 (09:57→21:19)
[2021-05-03] MEDS: BROVANA IN SCH ×2 (09:57→21:19)
[2021-05-03] MEDS: PROTONIX INJ 40 MG VIAL IVP SCH ×2 (09:59→21:09)
[2021-05-03] MEDS: LOVENOX INJ 120 MG SYR SC SCH ×2 (09:59→21:09)
[2021-05-03] MEDS: THIAMINE HCL INJ IVP SCH ×2 (09:59→21:09)
[2021-05-03] MEDS: LACRI-LUBE S.O.P. AFFEYE SCH ×2 (09:59→21:10)
[2021-05-03] MEDS: AVELOX IV 400 MG/250 ML BAG 400 MG/250 ML PIGGYBACK IV SCH (12:00)
--- NOTE | 2021-05-03 13:07 | RAD ---
HISTORYCOVID-19STUDYPortable PA chest proneCOMPARISONAugust 2020FINDINGSThere is now total opacification of both lungs obscuring cardiac and pulmonary vascular margins. Is in mid to lower trachea. NG tube passes below the diaphragm tip not visible. No pneumothorax or other extrapulmonary air identified.IMPRESSIONIncreasing marked confluent opacification of both lungs consistent with progression of pneumonia, pulmonary edema/ARDS.Electronically signed by: TORIBIO LUIS (May 03, 2021 13:05:48)
[2021-05-03] MEDS: SOLU-Medrol 125 MG VIAL IVP SCH ×3 (13:30→23:12)
[2021-05-04] MEDS: LR 1000 ML IV 1,000 ML IV SCH ×3 (02:00→18:03)
[2021-05-04] MEDS: ASCORBIC ACID INJ MULTI-DOSE VIAL 1,500 MG in NS 100 ML IV 100 ML IV SCH ×4 (02:01→20:31)
[2021-05-04] MEDS: REMDESIVIR 100 MG in NS 250 ML IV 250 ML IV SCH (02:06)
[2021-05-04] MEDS: DIPRIVAN PREMIX 1 GRAM IV 1,000 MG/100 ML VIAL IV PRN ×4 (03:16→19:47)
[2021-05-04] MEDS: SOLU-Medrol 125 MG VIAL IVP SCH ×3 (05:33→22:00)
[2021-05-04] MEDS: ZEMURON 100 MG VIAL 500 MG in NS 500 ML IV 450 ML IV SCH ×2 (05:39→05:40)
[2021-05-04 05:43] LABS: BASOPHILS % (AUTO) 0.2 % (0.2-1.0); HEMATOCRIT 40.4 % (42.0-54.0); HEMOGLOBIN 13.4 g/dL (13.5-18.0); LYMPHOCYTES # (AUTO) 0.7 X10^3/uL (1.3-2.9); LYMPHOCYTES % (AUTO) 4.5 % (21.0-51.0); MEAN CORPUSCULAR HEMOGLOBIN 29.5 pg (27.0-34.0); MEAN CORPUSCULAR HGB CONC 33.2 g/dL (33.0-35.0); MEAN CORPUSCULAR VOLUME 88.8 fL (80.0-100.0); MEAN PLATELET VOLUME 9.3 fL (7.4-11.0); MONOCYTES # (AUTO) 0.6 x10^3/uL (0.3-0.8); MONOCYTES % (AUTO) 3.6 % (0.0-13.0); NEUTROPHILS # (AUTO) 15.2 x10^3/uL (2.2-4.8); NEUTROPHILS % (AUTO) 91.7 % (42.0-75.0); PLATELET COUNT 235 X10^3/uL (150.0-450.0); RED BLOOD COUNT 4.55 X10^6/uL (4.7-6.0); RED CELL DISTRIBUTION WIDTH 14.5 % (11.6-16.5); WHITE BLOOD COUNT 16.6 X10^3/uL (3.6-10.0)
[2021-05-04 06:03] LABS: ALANINE AMINOTRANSFERASE 40 Units/L (12-78); ALBUMIN 1.7 g/dL (3.4-5.0); ALKALINE PHOSPHATASE 107 Units/L (46-116); ASPARTATE AMINO TRANSFERASE 43 Units/L (15-37); BLOOD UREA NITROGEN 26 mg/dL (7-18); CALCIUM 7.8 mg/dL (8.5-10.1); CARBON DIOXIDE 33.2 mmol/L (21-32); CHLORIDE 110 mmol/L (98-107); COR CA(FOR HYPOALB) 9.6 mg/dL (8.5-10.1); COR NA(FOR HYPERGLY) 154 mmol/L (136-145); CREATININE 0.86 mg/dL (0.70-1.30); SODIUM 148 mmol/L (136-145); TOTAL PROTEIN 5.9 g/dL (6.4-8.2); eGFR NON BLACK RACES > 60 (>60)
[2021-05-04 06:40] LABS: ABG HCO3 34.2 mmol/L (22-26)
[2021-05-04 06:41] LABS: ABG ALLEN TEST POS
[2021-05-04 06:43] LABS: PLATELET MORPHOLOGY COMMENT NORMAL (NORMAL)
[2021-05-04] MEDS ORDERED: LR 1000 ML IV 1,000 ML IV ONE (08:31)
[2021-05-04] MEDS: LACRI-LUBE S.O.P. AFFEYE SCH ×2 (08:55→20:31)
[2021-05-04] MEDS: DIFLUCAN 200 MG IV PREMIX* 200 MG/100 ML BAG IV SCH (08:55)
[2021-05-04] MEDS ORDERED: LOPRESSOR INJ 5 MG AMP IVP SCH (09:00)
[2021-05-04] MEDS: LOVENOX INJ 120 MG SYR SC SCH ×2 (09:25→20:31)
[2021-05-04] MEDS: PROTONIX INJ 40 MG VIAL IVP SCH ×2 (09:26→20:32)
[2021-05-04] MEDS: THIAMINE HCL INJ IVP SCH ×2 (09:26→20:32)
[2021-05-04] MEDS: PULMICORT NEB TX 0.5 MG NEB SCH ×2 (10:01→20:51)
[2021-05-04] MEDS: BROVANA IN SCH ×2 (10:01→20:51)
[2021-05-04] MEDS: LOPRESSOR INJ 5 MG AMP IVP PRN ×2 (11:12→19:22)
[2021-05-04] MEDS: AVELOX IV 400 MG/250 ML BAG 400 MG/250 ML PIGGYBACK IV SCH (11:27)
[2021-05-05] MEDS: DIPRIVAN PREMIX 1 GRAM IV 1,000 MG/100 ML VIAL IV PRN ×5 (00:10→21:44)
[2021-05-05] MEDS: LR 1000 ML IV 1,000 ML IV SCH ×5 (01:35→22:55)
[2021-05-05] MEDS: ASCORBIC ACID INJ MULTI-DOSE VIAL 1,500 MG in NS 100 ML IV 100 ML IV SCH ×4 (02:03→20:30)
[2021-05-05] MEDS: REMDESIVIR 100 MG in NS 250 ML IV 250 ML IV SCH (02:41)
[2021-05-05 04:59] LABS: BASOPHILS % (AUTO) 0.1 % (0.2-1.0); HEMATOCRIT 41.5 % (42.0-54.0); HEMOGLOBIN 13.9 g/dL (13.5-18.0); LYMPHOCYTES # (AUTO) 0.4 X10^3/uL (1.3-2.9); LYMPHOCYTES % (AUTO) 2.3 % (21.0-51.0); MEAN CORPUSCULAR HGB CONC 33.4 g/dL (33.0-35.0); MEAN CORPUSCULAR VOLUME 89.9 fL (80.0-100.0); MEAN PLATELET VOLUME 9.3 fL (7.4-11.0); MONOCYTES # (AUTO) 0.5 x10^3/uL (0.3-0.8); MONOCYTES % (AUTO) 2.5 % (0.0-13.0); NEUTROPHILS # (AUTO) 18.7 x10^3/uL (2.2-4.8); NEUTROPHILS % (AUTO) 95.1 % (42.0-75.0); PLATELET COUNT 191 X10^3/uL (150.0-450.0); RED BLOOD COUNT 4.62 X10^6/uL (4.7-6.0); RED CELL DISTRIBUTION WIDTH 14.4 % (11.6-16.5); WHITE BLOOD COUNT 19.7 X10^3/uL (3.6-10.0)
[2021-05-05] MEDS: SOLU-Medrol 125 MG VIAL IVP SCH ×3 (05:07→21:29)
[2021-05-05 05:17] LABS: ALANINE AMINOTRANSFERASE 36 Units/L (12-78); ALBUMIN 1.5 g/dL (3.4-5.0); ALKALINE PHOSPHATASE 107 Units/L (46-116); ASPARTATE AMINO TRANSFERASE 42 Units/L (15-37); BLOOD UREA NITROGEN 28 mg/dL (7-18); CALCIUM 7.7 mg/dL (8.5-10.1); CARBON DIOXIDE 33.7 mmol/L (21-32); CHLORIDE 111 mmol/L (98-107); COR CA(FOR HYPOALB) 9.7 mg/dL (8.5-10.1); COR NA(FOR HYPERGLY) 155 mmol/L (136-145); CREATININE 0.87 mg/dL (0.70-1.30); TOTAL PROTEIN 5.6 g/dL (6.4-8.2); eGFR NON BLACK RACES > 60 (>60)
[2021-05-05 05:29] LABS: SODIUM 150 mmol/L (136-145)
[2021-05-05 05:47] LABS: PLATELET MORPHOLOGY COMMENT NORMAL (NORMAL)
[2021-05-05 06:56] LABS: ABG BASE EXCESS 8.6 mmol/L (-2.0-2.0); ABG HCO3 36.2 mmol/L (22-26)
[2021-05-05 06:57] LABS: ABG ALLEN TEST POS
[2021-05-05] MEDS: DIFLUCAN 200 MG IV PREMIX* 200 MG/100 ML BAG IV SCH (08:45)
[2021-05-05] MEDS: LACRI-LUBE S.O.P. AFFEYE SCH ×2 (08:45→21:27)
[2021-05-05] MEDS: LOVENOX INJ 120 MG SYR SC SCH ×2 (08:45→21:29)
[2021-05-05] MEDS: PROTONIX INJ 40 MG VIAL IVP SCH ×2 (08:49→21:29)
[2021-05-05] MEDS: THIAMINE HCL INJ IVP SCH ×2 (08:49→21:29)
[2021-05-05] MEDS: PULMICORT NEB TX 0.5 MG NEB SCH ×2 (08:55→20:20)
[2021-05-05] MEDS: BROVANA IN SCH ×2 (08:55→20:20)
[2021-05-05] MEDS: ALBUMIN HUMAN 25%- 100 ML 100 ML IV SCH ×2 (08:57→21:28)
[2021-05-05] MEDS ORDERED: IVERMECTIN PO ONE (09:52)
[2021-05-05] MEDS ORDERED: LR 1000 ML IV 1,000 ML IV ONE (09:54)
[2021-05-05] MEDS: AVELOX IV 400 MG/250 ML BAG 400 MG/250 ML PIGGYBACK IV SCH (10:20)
[2021-05-05] MEDS: ZEMURON 100 MG VIAL 500 MG in NS 500 ML IV 450 ML IV SCH (13:51)
[2021-05-06] MEDS: LOPRESSOR INJ 5 MG AMP IVP PRN (01:34)
[2021-05-06] MEDS: LR 1000 ML IV 1,000 ML IV SCH (01:34)
[2021-05-06] MEDS: DIPRIVAN PREMIX 1 GRAM IV 1,000 MG/100 ML VIAL IV PRN (01:53)
[2021-05-06] MEDS: ASCORBIC ACID INJ MULTI-DOSE VIAL 1,500 MG in NS 100 ML IV 100 ML IV SCH (02:10)
[2021-05-06] MEDS: REMDESIVIR 100 MG in NS 250 ML IV 250 ML IV SCH (02:38)
[2021-05-06 05:11] LABS: ABG BASE EXCESS 9.9 mmol/L (-2.0-2.0)
[2021-05-06 05:12] LABS: ABG ALLEN TEST POS; ABG HCO3 37.3 mmol/L (22-26)
[2021-05-06 05:25] LABS: BASOPHILS # (AUTO) 0.2 X10^3/uL (0.0-0.1); BASOPHILS % (AUTO) 0.6 % (0.2-1.0); HEMATOCRIT 33.9 % (42.0-54.0); HEMOGLOBIN 11.1 g/dL (13.5-18.0); LYMPHOCYTES # (AUTO) 0.6 X10^3/uL (1.3-2.9); MEAN CORPUSCULAR HEMOGLOBIN 29.7 pg (27.0-34.0); MEAN CORPUSCULAR HGB CONC 32.8 g/dL (33.0-35.0); MEAN CORPUSCULAR VOLUME 90.5 fL (80.0-100.0); MEAN PLATELET VOLUME 10.6 fL (7.4-11.0); MONOCYTES # (AUTO) 0.6 x10^3/uL (0.3-0.8); NEUTROPHILS # (AUTO) 29.3 x10^3/uL (2.2-4.8); NEUTROPHILS % (AUTO) 95.4 % (42.0-75.0); PLATELET COUNT 75 X10^3/uL (150.0-450.0); RED BLOOD COUNT 3.75 X10^6/uL (4.7-6.0); RED CELL DISTRIBUTION WIDTH 14.5 % (11.6-16.5)
[2021-05-06] MEDS: SOLU-Medrol 125 MG VIAL IVP SCH (05:30)
[2021-05-06 05:31] LABS: WHITE BLOOD COUNT 30.8 X10^3/uL (3.6-10.0)
[2021-05-06 05:41] LABS: ALANINE AMINOTRANSFERASE 32 Units/L (12-78); ALBUMIN 2.1 g/dL (3.4-5.0); ALKALINE PHOSPHATASE 131 Units/L (46-116); ASPARTATE AMINO TRANSFERASE 47 Units/L (15-37); BLOOD UREA NITROGEN 33 mg/dL (7-18); CALCIUM 7.6 mg/dL (8.5-10.1); CARBON DIOXIDE 34.3 mmol/L (21-32); COR CA(FOR HYPOALB) 9.1 mg/dL (8.5-10.1); COR NA(FOR HYPERGLY) 159 mmol/L (136-145); TOTAL PROTEIN 5.4 g/dL (6.4-8.2); eGFR NON BLACK RACES > 60 (>60)
[2021-05-06 05:48] LABS: CHLORIDE 115 mmol/L (98-107); SODIUM 153 mmol/L (136-145)
[2021-05-06 06:17] LABS: PLATELET MORPHOLOGY COMMENT NORMAL (NORMAL)
[2021-05-06] MEDS ORDERED: LASIX IVP ONE ×3 (07:37→07:41)
[2021-05-06] MEDS ORDERED: LASIX ONE (07:43)
--- NOTE | 2021-05-06 08:25 | RAD ---
HISTORYvent hypoxiaSTUDYCHEST, 1 [id number]/22/2021FINDINGSBilateral opacity in the lungs has a somewhat focal distribution sugg esting pneumonia. Differential diagnosis includes pulmonary edema.There may be a slight improvement f rom 3 days ago. The lungs are better inflated than 3 days ago.No obvious effusion or pneumothorax.Hea rt size is normal.Degenerative changes are present in the spine.The endotracheal tube is anatomic in position in the trachea. The enteric tube extends into the upper abdomen. EKG leads are noted.IMPRESS ION1. Improved aeration2. Improved pneumoniaElectronically signed by: Anthony Tellez (May 06, 2021 08:23:10)
[2021-05-06 08:39] VITALS: BP 218/94
[2021-05-06] MEDS ORDERED: ALBUMIN HUMAN 25%- 100 ML 100 ML IV SCH (09:00)
[2021-05-06] MEDS ORDERED: LOVENOX INJ 80 MG SYR SC SCH (09:00)
[2021-05-06] MEDS: BROVANA IN SCH (09:00)
[2021-05-06] MEDS: PULMICORT NEB TX 0.5 MG NEB SCH (11:23)
== END 2021-05-06 13:17 | disposition expired | DRG 177 ==
LOC: ER 23:44 → ICU 04-27 02:35
PROVIDERS: ADMIT Obstetrics & Gynecology Obstetrics; ATTEND Obstetrics & Gynecology Obstetrics
DX: U07.1 COVID-19; E86.0 Dehydration; J12.81 Pneumonia due to SARS-associated coronavirus; I10 Essential (primary) hypertension; I87.2 Venous insufficiency (chronic) (peripheral); R26.81 Unsteadiness on feet; J96.00 Acute respiratory failure, unspecified whether with hypoxia or hypercapnia